=== PATIENT | female | born 1950 | race Caucasian/White ===

== ENCOUNTER 2016-11-06 18:21 | Emergency (ER) | payer BC ==
[2016-11-06 18:33] VITALS: BP 169/69
--- NOTE | 2016-11-06 19:24 | RAD ---
Indication: Pain and soft tissue swelling LEFT foot lateral aspect and across tarsal bones post fall. Comparison: No relevant prior exams available on the [facility] for comparison. Technique: AP, lateral, and oblique views LEFT foot. REPORT AND IMPRESSION: Normal articular alignment. No cortical disruption or suspicious trabecular irregularity to suggest fracture. Mild nonfocal soft tissue swelling.
--- NOTE | 2016-11-06 19:28 | UC ---
Lower Extremity/Ankle HPI - HPI Summary HPI Summary: Pt reports having a oak head board fall an dscrape down the posterior aspect of bilateral lower extremities causing the pt to fall and hyperextending her left foot. Pt states she was able to continue ambulating and doing her normal activity but the day continued on the pt reports that the pain has worsened to now pt is unable to bear weight - History of Current Complaint Chief Complaint: UCLowerExtremity Stated Complaint: LEFT ANKLE/LEG INJURY Time Seen by Provider: 11/06/16 18:46 Hx Obtained From: Patient Hx Last Menstrual Period: n/a ?: No Onset/Duration: Gradual Onset, Lasting Hours, Worse Since - onset Severity Initially: Mild Severity Currently: Moderate Aggravating Factor(s): Standing, Ambulation Alleviating Factor(s): Rest, Elevation Able to Bear Weight: No - Risk Factors Gout Risk Factors: Age Over 40 - Allergies/Home Medications Allergies/Adverse Reactions: Allergies Allergy/AdvReac Type Severity Reaction Status Date / Time No Known Allergies Allergy Verified 11/06/16 18:33 Home Medications: Home Medications NK [No Home Medications Reported] 11/06/16 [History Confirmed 11/06/16] PMH/Surg Hx/FS Hx/Imm Hx Previously Healthy: Yes - Surgical History Surgical History: None - Family History Known Family History: Positive: Hypertension - Social History Occupation: Retired Lives: With Family Alcohol Use: None Substance Use Type: None Smoking Status (MU): Former Smoker Have You Smoked in the Last Year: No Review of Systems Constitutional: Negative Skin: Bruising - posterior left lower leg 3-4 abrasion like bruises Eyes: Negative ENT: Negative Respiratory: Negative Cardiovascular: Negative Gastrointestinal: Negative Genitourinary: Negative Motor: Decreased ROM - left foot Neurovascular: Negative Musculoskeletal: Decreased ROM - left foot, Myalgia - left foot Neurological: Negative Psychological: Negative Is Patient Immunocompromised?: No All Other Systems Reviewed And Are Negative: Yes Physical Exam Triage Information Reviewed: Yes Appearance: Well-Appearing Vital Signs: Initial Vital Signs Pulse 76 11/06/16 18:29 Resp 17 11/06/16 18:29 BP 169/69 11/06/16 18:29 Pulse Ox 100 11/06/16 18:29 Vital Signs Reviewed: No Eye Exam: Normal ENT Exam: Normal Neck exam: Normal Respiratory: Positive: No respiratory distress Musculoskeletal: Positive: ROM Intact - left foot and ankle,Mojica test negative,, Strength Limited @ - left foot, ROM Limited @ Neurological Exam: Normal Psychological Exam: Normal Skin Exam: Other - 3-4 abrasion ~1 cm wide and ~5 cm long Lower Extremity Course/Dx - Differential Dx/Diagnosis Differential Diagnosis/HQI/PQRI: Contusion, Fracture (Closed), Strain Provider Diagnoses: left foot sprain Discharge - Discharge Plan Condition: Stable Disposition: HOME Patient Education Materials: Foot Sprain (ED), RICE Therapy (ED) Referrals: Mike Enciso MD [Medical Doctor] - 2 Days Lucina Diamond MD [Medical Doctor] - If Needed (Please follow up with your PCP or return to clinic to clinic. ) Additional Instructions: Please follow up with an orthopedic provider. We have provided a referral for you. xray report: REPORT AND IMPRESSION: Normal articular alignment. No cortical disruption or suspicious trabecular irregularity to suggest fracture. Mild nonfocal soft tissue swelling.
== END 2016-11-06 19:52 | disposition home or self-care (01) ==
LOC: UCCORT 18:21
DX: S93.602A Unspecified sprain of left foot, initial encounter (principal); S80.811A Abrasion, right lower leg, initial encounter; S80.812A Abrasion, left lower leg, initial encounter; W20.8XXA Other cause of strike by thrown, projected or falling object, initial encounter; Y93.9 Activity, unspecified; Y92.9 Unspecified place or not applicable; Z87.891 Personal history of nicotine dependence
CPT/HCPCS: 99212; G0463